=== PATIENT | male | born 1995 | race Two or more races ===

== ENCOUNTER 2025-07-14 15:09 | Emergency (ER) | payer OTHER ==
[~2025-07-14] VITALS: Ht 167.6 cm; Wt 78.5 kg
[2025-07-14] MEDS ORDERED: MONDOXYNE NL100 MG PO (17:37)
[2025-07-14] MEDS ORDERED: CEFTRIAXONE SODIUM 500 MG VIAL IM STA (17:39)
[2025-07-14] MEDS ORDERED: ACETAMINOPHEN500 M1 (18:02)
== END 2025-07-14 18:15 | disposition home or self-care (01) ==
LOC: ER 15:09
DX: A54.89 Other gonococcal infections (principal)